=== PATIENT | female | born 1985 | race Two or more races ===

== ENCOUNTER 2022-02-04 10:59 | Emergency (ER) | payer MEDICAID, SELFPAY ==
[2022-02-04 11:26] VITALS: BP 124/76; PULSE 90; O2SAT 97
--- NOTE | 2022-02-04 11:27 | ED_ITS ---
HPI - Skin/Abscess/Foreign Bdy General Chief complaint: Wound/Laceration Stated complaint: Abcess Time Seen by Provider: 02/04/22 11:14 Source: patient and EMS Mode of arrival: EMS Limitations: no limitations History of Present Illness HPI narrative: 36 YO female coming from [facility] where she is there for a section 12 presents to abscess to the posterior head x 2 weeks. No fevers, chills Related Data Previous Rx's Medication Instructions Recorded doxycycline monohydrate 100 mg 100 mg PO BID #14 caps 02/04/22 capsule Allergies Allergy/AdvReac Type Severity Reaction Status Date / Time No Known Allergies Allergy Verified 02/04/22 11:30 Review of Systems Review of Systems: Yes all other systems are reviewed and are negative Constitutional: Constitutional: Reports no additional constitutional complaints, Denies body ache(s), Denies chills, Denies fever(s), Denies headache (s) and Denies weakness Eyes: Eyes: Reports no additional eye complaints and Denies change in vision ENT: Reports system reviewed and no additional complaints, except as documented, Denies dizziness, Denies headache(s), Denies nasal congestion, Denies nasal discharge and Denies neck pain Cardiovascular: Cardiovascular: Reports no additional cardiovascular comp laints, Denies chest pain, Denies leg edema and Denies dyspnea Respiratory: Respiratory: Reports no additional respiratory complaints, Denies cough and Denies dyspnea Gastrointestinal: Gastrointestinal: Reports no additional gastrointestinal complaints, Denies abdominal pain, Denies diarrhea, Denies nausea and Denies vomiting Genitourinary: Genitourinary: Reports no additional female genitourinary complaints and Denies urinary incontinence Musculoskeletal: Musculoskeletal: Reports no additional musculoskeletal complaints, Denies back pain, Denies arthralgias, Denies joint swelling, Denies neck pain, Denies numbness and Denies tingling Integumentary/Breasts: Skin/Breast: Reports system reviewed and no additional complaints, except as docu, Reports furuncle, Reports swelling, Reports erythema and Denies rash Neurologic: Reports system reviewed and no additional complaints, except as documented, Denies Abnormal speech present, Denies dizziness, Denies headache(s), Denies numbness, Denies tingling and Denies weakness [facility] Past Medical History Attestation statement: The following information was validated with the patient. Source: old records reviewed and nursing notes reviewed Social History Social History Alcohol intake: never Patient Tobacco Use Status: Never used Tobacco Use of substances other than those prescribed or required for medical reasons: No Advance Directives: No Advance Directives Information Provided: No Patient : No Physical Exam Vital Signs: Vital Signs: Last Vital Signs Temp 99.0 F 02/04/22 13:59 Pulse 70 02/04/22 16:00 Resp 16 02/04/22 16:00 BP 128/60 02/04/22 16:00 Pulse Ox 98 02/04/22 16:00 O2 Del Method 02/04/22 16:00 BMI result Body Mass Index 21.7 Const: General: cooperative, healthy appearing, comfortable and no acute distress Orientation/consciousness: patient oriented x3 Limitations: no limitations HEENT: Head: Yes normal to inspection Head images: 1. medium sized abscess with tenderness/fluctuance Ears: hearing grossly normal bilaterally General nose exam: Normal external nose present Face and sinus: Yes normal facial exam Mouth: Normal oral and palatal mucosa present Throat: Yes posterior oropharynx normal Eyes: General: appearance normal, both eyes and all related structures Pupils: Equal, round and reactive pupils present Neck: Neck: Yes normal visual inspection, Yes full ROM and Yes no lymphadenopathy Chest: Chest palpation & inspection: normal inspection of the chest Resp: Effort & Inspection: normal respiratory effort Auscultation: clear to auscultation bilaterally Cardio: Rate: regular rate Rhythm: regular rhythm Peripheral pulses: Peripheral pulses 2+ throughout GI: Inspection: Yes normal to inspection Palpation (GI): Soft to palpation and nontender Auscultation: normal bowel sounds Back/Spine/Pelvis: Thoracic/Lumbar Spine: thoracic and lumbar spine normal to inspection Skin: General skin exam: no rashes or lesions noted Neuro: General: patient oriented x3, no focal motor deficits and normal sensation to monofilament Cranial nerves: Yes Equal, round and reactive pupils present Cognition (Neuro): normal cognition Speech: No Abnormal speech present Gait exam (Neuro): Normal gait present Motor exam (neuro): 5/5 motor strength present throughout Extrem: General: Yes normal to inspection MDM - Skin/Abscess/Foreign Bdy MDM Narrative Medical decision making narrative: 36-year-old female coming from an inpatient psych unit with an abscess the back of her head for 2 weeks with no reports of fevers or chills. See procedure note for I&D. Differential Diagnosis Differential diagnosis: Likely abscess of skin or subcutaneous tissue Medical Records Attestation: I reviewed the patient's medical records. Lab Data Attestation: I reviewed the patient's lab results. Procedures Abscess I/D Site: scalp Local Anesthetic: lidocaine 1% Amount of anesthesia used (mL): 1 Technique: incised with blade Amount of fluid expressed (mL): 10 Sent for culture/gram staining?: No Irrigation: No Packing used?: iodoform Discharge Plan Discharge Clinical Impression: Abscess Patient Disposition: Xfer [email or web address] Instructions: Abscess (ED) Additional Instructions: Packing removal in 48 hours Start antibiotic today Change dressing daily Prescriptions: New doxycycline monohydrate 100 mg capsule 100 mg PO BID Qty: 14 0RF
[2022-02-04 11:28] VITALS: BP 105/60; PULSE 100; RESP 16; TEMP 36.8; O2SAT 98; BMI 21.7
[2022-02-04] MEDS: Lidocaine 4 % Cream KIT 1 APPL TOPICAL (12:13)
[2022-02-04] MEDS: Lidocaine HCl 1 % MPF 2 ML VIAL INFILTRATI ×2 (12:14)
[2022-02-04] MEDS: Acetaminophen 325 MG TABLET 975 MG PO (12:47)
--- NOTE | 2022-02-04 13:11 | PC.NURSE ---
Provider approached to send pt back to [facility] section 12. Ashley from [employer] was contacted and stated they are holding 2 transfers unsure of eta, and we can book with another company if need be. [facility] was called at 1253 pm they said they cannot transport the pt. So [facility] was contacted at 1254 they stated they can take the pt for 330pm .
[2022-02-04 13:59] VITALS: BP 128/64; PULSE 87; RESP 16; TEMP 37.2; O2SAT 98
--- NOTE | 2022-02-04 15:43 | PC.NURSE ---
call was placed to [employer] to find out eta due to [facility] saying they would be picking up the pt at 1530. [employer] stated they are behind but will be send the truck in 30 mins
[2022-02-04 16:00] VITALS: BP 128/60; PULSE 70; RESP 16; O2SAT 98
== END 2022-02-04 17:10 | disposition other institution (70) ==
PROVIDERS: Emergency Provider Emergency Medicine; PCP Internal Medicine
DX: L02.811 Cutaneous abscess of head [any part, except face] (principal)
CPT/HCPCS: 10060; 99283; 99284

== ENCOUNTER 2024-02-06 14:31 | Emergency (ER) | payer MEDICAID, SELFPAY ==
--- NOTE | ~2024-02-06 | CT_ITS ---
EXAMINATION: CT HEAD WITHOUT CONTRAST CLINICAL INFORMATION: Headache. Nausea. Vomiting. COMPARISON: None available. TECHNIQUE: Contiguous axial imaging was performed from the skull base to vertex without intravenous administration of contrast. This CT examination was performed using dose optimization techniques as appropriate, variously including the following: *Automated exposure control. *Adjustment of mA and/or kV according to patient size (this includes techniques or standardized protocols for targeted exams where dose is matched to indication/reason for exam; i.e. extremities or head). *Use of iterative reconstruction technique. DLP: 525 mGy-cm FINDINGS: There is no evidence of acute intracranial hemorrhage or edematous territorial infarction. Aguiar-white matter differentiation is preserved. There is no abnormal attenuation within the brain parenchyma. The ventricles are normal in morphology and size. No evidence for obstructive hydrocephalus. No abnormal mass effect or midline shift. No extra-axial fluid collections. Soft tissue edema/hematoma along the left posterior vertex. No associated acute osseous abnormalities. Near complete opacification of the partially atelectatic left maxillary sinus. Mild mucosal thickening of the remaining paranasal sinuses. The mastoid air cells and middle ear cavities are clear. CT/CT head/brain wo IV con IMPRESSION: 1. No evidence of acute intracranial hemorrhage or edematous territorial infarction. 2. Soft tissue edema/hematoma along the left posterior vertex. No associated osseous abnormalities. 3. Prominent left maxillary sinus disease with partial atelectasis. Electronically signed by: Abrahan Padilla DO 02/07/2024 12:50 AM EDT
--- NOTE | ~2024-02-06 | XR_ITS ---
EXAMINATION: XR CHEST CLINICAL INFORMATION: Cough. Shortness of breath. COMPARISON: None available. TECHNIQUE: 2 views of the chest were obtained. FINDINGS: No significant abnormality is noted involving the heart, lungs, mediastinum, bony thorax or soft tissues. XR/XR chest 2V IMPRESSION: Unremarkable examination. Electronically signed by: Dennis Nuñez MD 02/07/2024 01:26 AM EDT RP
[2024-02-06 15:22] VITALS: BP 130/74; PULSE 116; RESP 18; TEMP 37.1; O2SAT 97; BMI 19.7
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
[2024-02-06 16:01] LABS: MANUAL DIFF FLAG NO
[2024-02-06 16:05] LABS: Appearance Urine Clear; Glucose Urine UA Negative (Negative); Leukocyte Esterase Urine Negative (Negative); Nitrite Urine Negative (Negative); Specific Gravity - Urine 1.025 (1.005-1.025); UMIC TRIGGER UACC YES; Urine Blood Negative (Negative); Urine Ketones >=160 mg/dL (Negative); Urine Protein 30 (1+) mg/dL (Neg-Trace)
[2024-02-06 16:12] LABS: Basophils Percent Auto 0.3 % (0-2); Color Urine Yellow; Eosinophils Percent Auto 0.2 % (0-4); Hematocrit 38.1 % (37.0-47.0); Hemoglobin 12.6 g/dl (12.0-16.0); Imm Gran Abs Auto 0.06 X10*3/uL (0.00-0.03); Imm Gran Pct Auto 0.5 % (0.0-0.4); Lymphocytes Absolute Auto 3.5 X10*3/uL (1.2-4.9); Lymphocytes Percent Auto 26.8 % (20-40); Mean Corpuscular HGB Conc 33.1 g/dl (31.0-35.0); Mean Corpuscular Hemoglobin 27.7 pg (27.0-33.0); Mean Corpuscular Volume 83.7 fL (80.0-98.0); Mean Platelet Volume 8.4 fL (9.4-12.3); Monocytes Absolute Auto 0.6 X10*3/uL (0.1-1.2); Monocytes Percent Auto 4.4 % (2-11); Neutrophils Absolute Auto 8.9 x10*3/uL (2.0-8.3); Neutrophils Percent Auto 67.8 % (45-73); Platelet Count 401 X10*3/uL (160-400); Red Blood Count 4.55 X10*6/uL (4.20-5.50); Red Cell Distribution Width 14.6 % (11.0-16.0); White Blood Count 13.2 X10*3/uL (4.8-10.8)
[2024-02-06 16:14] LABS: Amphetamine Screen Urine Not Detected (Not Detect); Barbiturates, Urine Not Detected (Not Detect); Benzodiazepines Screen Urine Not Detected (Not Detect); Buprenorphine Scr Not Detected (Not Detect); Cannabinoid Screen Urine POSITIVE (Not Detect); Cocaine Screen Urine POSITIVE (Not Detect); Fentanyl, urine POSITIVE (Not Detect); Methadone Screen, Urine Not Detected (Not Detect); Opiate Screen Urine POSITIVE (Not Detect); Oxycodone Screen Urine Not Detected (Not Detect); Phencyclidine Screen Urine Not Detected (Not Detect)
[2024-02-06 16:19] LABS: Lactic Acid 1.1 mmol/L (0.5-2.0)
[2024-02-06 16:20] LABS: Bacteria Urine None Seen (None Seen); RBC Urine 0-2 /HPF (0-2); WBC Urine 0-5 /HPF (0-5)
[2024-02-06 16:21] LABS: Ethanol < 10 mg/dL
[2024-02-06 16:30] LABS: HCG Quantitative 14579 mIU/mL
[2024-02-06 17:52] LABS: Alanine Aminotransferase 42 U/L (0-31); Albumin Level 3.9 g/dL (3.5-5.0); Alkaline Phosphatase 90 U/L (39-117); Anion Gap 14 (12-20); Aspartate Amino Transferase 33 U/L (5-31); Bilirubin Total 0.2 mg/dL (0.0-1.0); Blood Urea Nitrogen 6 mg/dL (9-16); Calcium 9.8 mg/dL (8.4-10.2); Carbon Dioxide 24 mmol/L (22-29); Chloride 99 mmol/L (96-108); Creatinine Clr Calc Pharmacy 93.8; Estimated Glomerular Filt Rate > 60; Glucose Random 142 mg/dL (60-115); Magnesium 1.7 mg/dL (1.6-2.6); Potassium 3.7 mmol/L (3.3-5.1); Sodium 133 mmol/L (135-145); Total Protein 7.7 g/dL (6.5-8.0)
[2024-02-06 20:07] VITALS: BP 110/67; PULSE 100; RESP 16; TEMP 36.7; O2SAT 97
[2024-02-06 23:07] VITALS: BP 132/70; PULSE 91; RESP 16; TEMP 36.6; O2SAT 96
[2024-02-07] MEDS: cephALEXin 500 MG CAPSULE PO (00:35)
[2024-02-07] MEDS: Ondansetron ODT 4 MG TAB.RAPDIS TRANSLINGU (00:35)
[2024-02-07] MEDS: Penicillin G Benzathine 2,400,000 UNIT/4 ML SYRINGE 2400000 UNIT IM (00:35)
--- NOTE | 2024-02-07 00:48 | PC.NURSE ---
this rn assumed care of pt. pt a&ox4, respirations even and unlabored. vss. medicated pt according to mar, pt tolerated well with water.
[2024-02-07 01:27] VITALS: BP 108/51; PULSE 71; RESP 16; TEMP 36.9; O2SAT 94
[2024-02-07 03:13] VITALS: BP 114/59; PULSE 72; RESP 16; TEMP 36.6; O2SAT 97
[2024-02-07 03:14] VITALS: BP 114/59; PULSE 72; RESP 16; TEMP 36.6; O2SAT 97
[2024-02-07 08:20] LABS: HIV AB/AG Nonreactive (Nonreactive); HIV Num 1 0.18 S/CO (0.00-0.99)
== END 2024-02-07 03:21 | disposition home or self-care (01) ==
PROVIDERS: Physician Assistant Medical; Emergency Provider Emergency Medicine Emergency Medical Services; PCP Family Medicine
DX: S06.0X1A Concussion with loss of consciousness of 30 minutes or less, initial encounter (principal); S00.01XA Abrasion of scalp, initial encounter; A53.9 Syphilis, unspecified; R11.10 Vomiting, unspecified; R06.02 Shortness of breath; R05.9 Cough, unspecified; R51.9 Headache, unspecified; X58.XXXA Exposure to other specified factors, initial encounter; Y93.89 Activity, other specified; Y92.89 Other specified places as the place of occurrence of the external cause; Y99.8 Other external cause status; Z51.81 Encounter for therapeutic drug level monitoring; Z20.2 Contact with and (suspected) exposure to infections with a predominantly sexual mode of transmission; Z79.899 Other long term (current) drug therapy
CPT/HCPCS: 36415; 70450; 71046; 80053; 80307; 81001; 83605; 83735; 84702; 85025; 87040; 87389; 96372; 99284; J0561

== ENCOUNTER 2024-12-27 07:17 | Emergency (ER) | payer MEDICAID, SELFPAY ==
[2024-12-27] VITALS (14 sets, daily range): BP systolic 89–122; BP diastolic 44–80; PULSE 63–138; RESP 12–25; TEMP 36.2–36.9; O2SAT 94–100; BMI 17.7
[2024-12-27] MEDS: diazePAM 10 MG/2 ML CARTRIDGE 2.5 MG IM (07:34)
--- NOTE | 2024-12-27 07:50 | ED_ITS ---
HPI - Overdose General Chief Complaint: Overdose Stated Complaint: OD,8MG NARCAN Time Seen by Provider: 12/27/24 07:25 Source: EMS Mode of arrival: EMS Limitations: language barrier and altered mental status History of Present Illness ED Provider: HPI Narrative: 39-year-old woman found with multiple drug paraphernalia on her person including injection needles, crack pipe, presenting with being found unresponsive on the sidewalk, giving a total of 8 mg of intranasal Narcan, presented to the emergency department, writhing on the stretcher and agitated, not really able to answer direct questions requesting water, trying to get off the stretcher. Related Data Home Medications ?Medication ?Instructions ?Recorded ?Confirmed No Known Home Meds 12/27/24 12/27/24 Allergies Allergy/AdvReac Type Severity Reaction Status Date / Time No Known Allergies Allergy Verified 12/27/24 07:30 Review of Systems 2 Constitutional: Constitutional: Reports as per [facility] Social History Social History Alcohol intake: current Alcohol intake frequency: holidays/special occasions only Patient Tobacco Use Status: Never used Tobacco Smoked in Last 30 Days: Yes Use of substances other than those prescribed or required for medical reasons: Yes Substance Use Type: Heroin Advance Directives: No Advance Directives Information Provided: Yes Patient : No Physical Exam 2 Vital Signs: Vital Signs: Last Vital Signs Temp 98.6 F 12/28/24 06:51 Pulse 67 12/28/24 06:51 Resp 16 12/28/24 06:51 BP 133/88 12/28/24 06:51 Pulse Ox 100 12/28/24 06:51 O2 Del Method Room Air 12/28/24 06:51 O2 Flow Rate 14 12/27/24 10:52 BMI result Body Mass Index 17.7 Const: Other: * Gen: ?Appears older than stated age * HEENT: No facial trauma, no blood in the airway, pupils 3 mm reactive bilaterally * Neck: No infectious etiology noted or trauma over the neck * CV: S1-S2 with palpable pulses bilaterally * Resp: Moving air well * Abd: Cachectic abdomen nontender nondistended * MSK: FROM, strength 5/5 all extremities * Skin: No obvious evidence of any bruising or cellulitis * Neuro: ?Alert, agitated moving upper or lower extremities symmetrically, requesting water, able to follow the recommends but not answering questions Course Course Course Narrative: BS stable, awake and alert VS stable refuses all psych/substance abuse help, declined SUDE sent home with narcan will allow her to sleep tonight and DC in AM observation will end at 6am on 12/27/24 JOSSUE Reevaluation(s) Reevaluation #1: Anticipating discharge as per plan above Time: 07:39 Medications Administered Generic Name Dose Route Start Last Admin Trade Name Freq PRN Reason Stop Dose Admin Lactated Ringer's 1,000 mls @ 0 mls/hr 12/27/24 12:30 12/27/24 15:00 Lr IV Infused .Q0M ROSENDA Infusion Wide Open Discontinued Medications Generic Name Dose Route Start Last Admin Trade Name Freq PRN Reason Stop Dose Admin Dextrose 25 gm 12/27/24 10:38 12/27/24 10:37 Dextrose 50 % 25 Gm/50 Ml Syringe IVPUSH 12/27/24 10:39 25 gm ONCE ONE Administration Dextrose 25 gm 12/27/24 10:53 12/27/24 10:54 Dextrose 50 % 25 Gm/50 Ml Syringe IVPUSH 12/27/24 10:54 25 gm ONCE ONE Administration Diazepam 2.5 mg 12/27/24 07:26 12/27/24 07:34 Diazepam 10 Mg/2 Ml Cartridge IM 12/27/24 07:27 2.5 mg STAT STA Administration Diazepam 5 mg 12/27/24 07:52 12/27/24 09:23 Diazepam 10 Mg/2 Ml Cartridge IM 12/27/24 07:53 Not Given STAT STA Haloperidol Lactate 5 mg 12/27/24 07:26 12/27/24 07:38 Haloperidol Lactate 5 Mg/Ml Vial IM 12/27/24 07:27 5 mg ONCE ONE Administration Sodium Chloride 1,000 mls @ 999 mls/hr 12/27/24 10:15 12/27/24 11:22 Ns IV 12/27/24 11:15 Infused .Q1H1M ROSENDA Infusion Sodium Chloride 1,000 mls @ 999 mls/hr 12/27/24 11:30 12/27/24 14:02 Ns IV 12/27/24 12:30 Infused .Q1H1M ROSENDA Infusion Naloxone HCl 8 mg 12/27/24 08:00 12/27/24 19:49 Naloxone Hcl Nasal Take Home 4 Mg [place] NOSTRILALT 12/27/24 08:01 Not Given ONCE ONE Medical Decision Making Medical Decision Making MDM Narrative: 39-year-old woman found with multiple drug paraphernalia, received 8 mg of Narcan, at this point requiring sedation for her safety she is trying to get up out of bed and at this point I would like to sedate her just enough so she can be re-evaluated by recovery team, if to be discharged we will order Narcan to go, EMS did not report it SI or HI in the field, 10:30 patient is more comfortable but she was becoming hypotensive and so we are getting blood work and providing IV fluids 10:48 patient is hypoglycemic so providing dextrose as well 15:10 patient is going to be discharge, not interested in detox, blood pressure has normalized she did receive 3 use of fluids, which consistent with drug use and dehydration, there was no underlying evidence for any infection or consistent hypoglycemia she ate, her vital signs have improved quite a bit with fluids and food. 16:00 patient at the time of discharge stated that now she would like to speak to recovery team I will ask them to see the patient again. Differential Diagnosis Differential Diagnoses: The differential diagnosis associated with the presentation includes (Trauma, seizure, overdose, alcohol withdrawal, opiate withdrawal, hepatic encephalopathy) Admission/Observation Consideration of admission/observation: Escalation of care including admission/observation considered 2022 Emergency Medicine Coding Guide from [employer] on 12/27/2024 All calculations should be rechecked by clinician prior to use 2022 Emergency Medicine Coding Guide from [employer] on 12/27/2024 All calculations should be rechecked by clinician prior to use RESULT SUMMARY: 5 Estimated Level of Service Problems: High (5) Risk: High (5) Data: Extensive (5) NARRATIVE MDM: This patient's problem complexity is High as patient: may have an acute or chronic illness/injury posing a threat to life or body function. This patient's risk is High due to: overall presentation requiring evaluation for a potentially High-risk process. This patient's data complexity is Extensive due to: -multiple tests ordered -independent historian used to support history -independent interpretation of imaging or EKG -discussion of management/testing with external professional INPUTS: Number and Complexity ?> 2 = 5: illness/injury w/life or body threat (b) Risk level ?> 4 = High Tests ordered ?> 2 = 2 Tests results reviewed (excluding labs) ?> 0 = 0 Prior external notes reviewed ?> 0 = 0 Assessment requiring and independent historian ?> 1 = Yes Independent interpretation of tests ?> 1 = Yes Discussed management/test interpretation w/external professional ?> 1 = Yes Lab Data 12/27/24 10:21 12/27/24 10:21 Labs: Lab Results 12/27/24 12/27/24 12/27/24 Range/Units 10:21 10:34 11:30 WBC 11.0 H (4.8-10.8) X10*3/uL RBC 3.78 L (4.20-5.50) X10*6/uL Hgb 10.9 L (12.0-16.0) g/dl Hct 34.6 L (37.0-47.0) % MCV 91.5 (80.0-98.0) fL MCH 28.8 (27.0-33.0) pg MCHC 31.5 (31.0-35.0) g/dl RDW 13.7 (11.0-16.0) % Plt Count 226 D (160-400) X10*3/uL MPV 9.0 L (9.4-12.3) fL Immature Gran % (Auto) 0.4 (0.0-0.4) % Neut % (Auto) 82.3 H (45-73) % Lymph % (Auto) 10.5 L (20-40) % Independence % (Auto) 6.6 (2-11) % Eos % (Auto) 0.0 (0-4) % Baso % (Auto) 0.2 (0-2) % Lymph # (Auto) 1.2 (1.2-4.9) X10*3/uL Independence # (Auto) 0.7 (0.1-1.2) X10*3/uL Eos # (Auto) 0.0 (0.0-0.4) X10*3/uL Baso # (Auto) 0.0 (0.0-0.2) X10*3/uL Abs Immat Gran (auto) 0.04 H (0.00-0.03) X10*3/uL Absolute Neuts (auto) 9.0 H (2.0-8.3) x10*3/uL Absolute Nucleated RBC 0.000 (0.0-0.012) X10*3/uL Nucleated RBC % (auto) 0.0 (0.0-0.2) /100WBC Sodium 140 (135-145) mmol/L Potassium 3.6 (3.3-5.1) mmol/L Chloride 106 (96-108) mmol/L Carbon Dioxide 28 (22-29) mmol/L Anion Gap 10 L (12-20) BUN 13 (9-16) mg/dL Creatinine 0.53 (0.5-1.4) mg/dL Estim Creat Clear Calc 103.9 Estimated GFR > 60 POC Glucose 40 L* 131 H (60-115) mg/dL Random Glucose 46 L* (60-115) mg/dL Calcium 8.4 D (8.4-10.2) mg/dL Total Bilirubin 0.1 (0.0-1.0) mg/dL AST 78 H (5-31) U/L ALT 53 H (0-31) U/L Alkaline Phosphatase 94 (39-117) U/L Total Protein 6.4 L (6.5-8.0) g/dL Albumin 3.6 (3.5-5.0) g/dL Urine Opiates Screen (Not Detect) Ur Buprenorphine Scrn (Not Detect) ng/mL Ur Oxycodone Screen (Not Detect) ng/mL Urine Methadone Screen (Not Detect) ng/mL Urine Fentanyl Screen (Not Detect) Ur Barbiturates Screen (Not Detect) Ur Phencyclidine Scrn (Not Detect) Ur Amphetamines Screen (Not Detect) U Benzodiazepines Scrn (Not Detect) Urine Cocaine Screen (Not Detect) U Marijuana (THC) Screen (Not Detect) 12/27/24 12/27/24 12/27/24 Range/Units 12:21 13:49 14:07 WBC (4.8-10.8) X10*3/uL RBC (4.20-5.50) X10*6/uL Hgb (12.0-16.0) g/dl Hct (37.0-47.0) % MCV (80.0-98.0) fL MCH (27.0-33.0) pg MCHC (31.0-35.0) g/dl RDW (11.0-16.0) % Plt Count (160-400) X10*3/uL MPV (9.4-12.3) fL Immature Gran % (Auto) (0.0-0.4) % Neut % (Auto) (45-73) % Lymph % (Auto) (20-40) % Independence % (Auto) (2-11) % Eos % (Auto) (0-4) % Baso % (Auto) (0-2) % Lymph # (Auto) (1.2-4.9) X10*3/uL Independence # (Auto) (0.1-1.2) X10*3/uL Eos # (Auto) (0.0-0.4) X10*3/uL Baso # (Auto) (0.0-0.2) X10*3/uL Abs Immat Gran (auto) (0.00-0.03) X10*3/uL Absolute Neuts (auto) (2.0-8.3) x10*3/uL Absolute Nucleated RBC (0.0-0.012) X10*3/uL Nucleated RBC % (auto) (0.0-0.2) /100WBC Sodium (135-145) mmol/L Potassium (3.3-5.1) mmol/L Chloride (96-108) mmol/L Carbon Dioxide (22-29) mmol/L Anion Gap (12-20) BUN (9-16) mg/dL Creatinine (0.5-1.4) mg/dL Estim Creat Clear Calc Estimated GFR POC Glucose 93 65 81 (60-115) mg/dL Random Glucose (60-115) mg/dL Calcium (8.4-10.2) mg/dL Total Bilirubin (0.0-1.0) mg/dL AST (5-31) U/L ALT (0-31) U/L Alkaline Phosphatase (39-117) U/L Total Protein (6.5-8.0) g/dL Albumin (3.5-5.0) g/dL Urine Opiates Screen (Not Detect) Ur Buprenorphine Scrn (Not Detect) ng/mL Ur Oxycodone Screen (Not Detect) ng/mL Urine Methadone Screen (Not Detect) ng/mL Urine Fentanyl Screen (Not Detect) Ur Barbiturates Screen (Not Detect) Ur Phencyclidine Scrn (Not Detect) Ur Amphetamines Screen (Not Detect) U Benzodiazepines Scrn (Not Detect) Urine Cocaine Screen (Not Detect) U Marijuana (THC) Screen (Not Detect) 12/27/24 12/27/24 Range/Units 19:41 20:22 WBC (4.8-10.8) X10*3/uL RBC (4.20-5.50) X10*6/uL Hgb (12.0-16.0) g/dl Hct (37.0-47.0) % MCV (80.0-98.0) fL MCH (27.0-33.0) pg MCHC (31.0-35.0) g/dl RDW (11.0-16.0) % Plt Count (160-400) X10*3/uL MPV (9.4-12.3) fL Immature Gran % (Auto) (0.0-0.4) % Neut % (Auto) (45-73) % Lymph % (Auto) (20-40) % Independence % (Auto) (2-11) % Eos % (Auto) (0-4) % Baso % (Auto) (0-2) % Lymph # (Auto) (1.2-4.9) X10*3/uL Independence # (Auto) (0.1-1.2) X10*3/uL Eos # (Auto) (0.0-0.4) X10*3/uL Baso # (Auto) (0.0-0.2) X10*3/uL Abs Immat Gran (auto) (0.00-0.03) X10*3/uL Absolute Neuts (auto) (2.0-8.3) x10*3/uL Absolute Nucleated RBC (0.0-0.012) X10*3/uL Nucleated RBC % (auto) (0.0-0.2) /100WBC Sodium (135-145) mmol/L Potassium (3.3-5.1) mmol/L Chloride (96-108) mmol/L Carbon Dioxide (22-29) mmol/L Anion Gap (12-20) BUN (9-16) mg/dL Creatinine (0.5-1.4) mg/dL Estim Creat Clear Calc Estimated GFR POC Glucose 95 (60-115) mg/dL Random Glucose (60-115) mg/dL Calcium (8.4-10.2) mg/dL Total Bilirubin (0.0-1.0) mg/dL AST (5-31) U/L ALT (0-31) U/L Alkaline Phosphatase (39-117) U/L Total Protein (6.5-8.0) g/dL Albumin (3.5-5.0) g/dL Urine Opiates Screen POSITIVE H (Not Detect) Ur Buprenorphine Scrn Not Detected (Not Detect) ng/mL Ur Oxycodone Screen Not Detected (Not Detect) ng/mL Urine Methadone Screen Not Detected (Not Detect) ng/mL Urine Fentanyl Screen POSITIVE H (Not Detect) Ur Barbiturates Screen Not Detected (Not Detect) Ur Phencyclidine Scrn Not Detected (Not Detect) Ur Amphetamines Screen Not Detected (Not Detect) U Benzodiazepines Scrn Not Detected (Not Detect) Urine Cocaine Screen POSITIVE H (Not Detect) U Marijuana (THC) Screen POSITIVE H (Not Detect) Independent Interpretation I performed an independent interpretation of an: EKG (117 bpmsinus tachycardia without any QTC prolongation or dysrhythmia) Social Determinants Patient?s care significantly limited by Social Determinants of Health including: Inadequate housing and Other Social Determinant of Health (Opiate use disorder) Critical Care Time Critical Care Time Total Critical Care Time: 45 Attestation: Time is exclusive of separately billable procedures. Time includes: direct patient care, patient reassessment, coordination of patient care, interpretation of data (laboratory data, pulse oximetry, arterial blood gases and chest xrays), review of patient's medical records, medical consultation and documentation of patient care. Procedures excluded from critical care time: central intravenous line placement and electrocardiography. Discharge Plan Discharge Clinical Impression: Drug overdose, Hypoglycemia, Acute dehydration Patient Disposition: Home, Self-Care Instructions: Dehydration (ED), Dehydration (DC), Non-diabetic Hypoglycemia (ED) Additional Instructions: Opiate use disorder You were seen in our Emergency Department today for treatment of opiate use disorder. You may have been dosed with medication for opiate use disorder (MOUD) in the form of suboxone or methadone. You may experience feeling some withdrawal symptoms and this is normal. The? dose in the Emergency Department is a starting dose and meant to be titrated up once you follow up with a clinic. Please do not feel discouraged, it is a process. The nurse has reviewed with you where to follow up and what information to bring with you, to continue treatment. You also may have been given naloxone (narcan) to take home with you. This medication is used to potentially treat opiate overdose. If you decide you want to stop or cut down on how much you?re using, you can call or walk into our outpatient Addiction Treatment office: [facility] (M-F 9am-5p) [address], [address] [phone] You may have been provided with safer injection?items, please take time to take care of YOU and your health. Use new supplies whenever possible to lessen the chances of infections and other illnesses.? ?If you need more supplies, please go [facility],? [address] [place] [address] OR you can call or text to coordinate delivery of safer supplies. You were also provided a list of several treatment providers in the area.? If you experience any worsening symptoms you cannot control please return to the ED or call 911. Please follow up at your next appointment. Things to look out for are fevers, chest pain, shortness of breath, severe pain, dizziness, fainting or any other concerns. Prescriptions: No Action No Known Home Meds Print Language: Kittitian
--- NOTE | 2024-12-27 08:01 | ECG_ITS ---
Test Reason : overdose Blood Pressure : */* mmHG Vent. Rate : 117 BPM Atrial Rate : 117 BPM P-R Int : 134 ms QRS Dur : 74 ms QT Int : 336 ms P-R-T Axes : 72 77 59 degrees QTcB Int : 468 ms Sinus tachycardia Possible Left atrial enlargement Minimal voltage criteria for LVH, may be normal variant ( Sokolow-Salazar ) Borderline ECG No previous ECGs available Referred By: Griffin William Electronically Signed By: Emerson Funes
--- NOTE | 2024-12-27 08:03 | PC.NURSE ---
Pt finally calming. arousable to light touch. ST onmonitor. no resp depression. skin pwd.
--- NOTE | 2024-12-27 10:08 | PC.NURSE ---
MD aware of low BP. VO for I fluids. pt is arousable to light touch. slightl diaphoretic. positioned slight [place]. Will continue to monitor closely.
[2024-12-27 10:27] LABS: MANUAL DIFF FLAG NO
[2024-12-27 10:31] LABS: Hematocrit 34.6 % (37.0-47.0); Hemoglobin 10.9 g/dl (12.0-16.0); Imm Gran Abs Auto 0.04 X10*3/uL (0.00-0.03); Imm Gran Pct Auto 0.4 % (0.0-0.4); Lymphocytes Absolute Auto 1.2 X10*3/uL (1.2-4.9); Mean Corpuscular HGB Conc 31.5 g/dl (31.0-35.0); Mean Corpuscular Hemoglobin 28.8 pg (27.0-33.0); Mean Corpuscular Volume 91.5 fL (80.0-98.0); NRBC Abs Auto 0.000 X10*3/uL (0.0-0.012); NRBC Pct Auto 0.0 /100WBC (0.0-0.2); Platelet Count 226 X10*3/uL (160-400); Red Blood Count 3.78 X10*6/uL (4.20-5.50); White Blood Count 11.0 X10*3/uL (4.8-10.8)
--- NOTE | 2024-12-27 10:37 | PC.NURSE ---
D50 1 amp given IVP after POC 40 known.
[2024-12-27 10:40] LABS: Glucose, Whole Blood 40 mg/dL (60-115)
--- NOTE | 2024-12-27 10:43 | PC.NURSE ---
Pt is still arousable to light touch. MD aware of low POC.
[2024-12-27 10:47] LABS: Alanine Aminotransferase 53 U/L (0-31); Albumin Level 3.6 g/dL (3.5-5.0); Alkaline Phosphatase 94 U/L (39-117); Anion Gap 10 (12-20); Aspartate Amino Transferase 78 U/L (5-31); Blood Urea Nitrogen 13 mg/dL (9-16); Calcium 8.4 mg/dL (8.4-10.2); Carbon Dioxide 28 mmol/L (22-29); Chloride 106 mmol/L (96-108); Creatinine Clr Calc Pharmacy 103.9; Estimated Glomerular Filt Rate > 60; Potassium 3.6 mmol/L (3.3-5.1); Sodium 140 mmol/L (135-145); Total Protein 6.4 g/dL (6.5-8.0)
--- NOTE | 2024-12-27 10:56 | PC.NURSE ---
Pt does not have or need a sitter. Is not more awake. Denies SI/HI. requesting soda. nods off quickly w/o stimulation
--- NOTE | 2024-12-27 11:44 | MHC.CARE ---
CARE team attempted to meet with the pt to complete a SUDE/recovery assessment. ER nurse reported that her vitals and blood pressure have been low and that she has been in and out due to medications that were administered on arrival to the ER. Pt was observed sitting up but unable to hold her head up or keep her eyes open. Will try again later.
--- OUTSIDE RECORDS SUMMARY | 2024-12-27 12:11 | XMS_ITS | Clinical Summary ---
Author Organization [facility] Address [address] [place] [address] Phone Care Team Providers Care Underground Production Foreperson Name Role Phone Pcp, Unknown Primary Care Provider Unavailabl e Allergies No known active allergies Medications ARIPiprazole (ABILIFY) 10 MG tablet Take 10 mg by mouth. 01/24/2024 Active Active Problems Problem Noted Date Diagnosed Date Hepatitis C 09/04/2024 Pancreatitis 09/03/2024 Electrolyte abnormality 09/02/2024 Assessment & Plan (09/03/2024 9:27 AM EDT): Phosphorus low again, replete and follow also supplement magnesium Assessment & Plan (09/02/2024 9:07 AM EDT): Phosphorus low, replete IV, magnesium also low. Replete and monitor Alcohol-induced acute pancre atitis without infection or necrosis 09/01/2024 Assessment & Plan (09/03/2024 9:27 AM EDT): Patient drinks heavily, up to 1.5L of hard liquor daily. Presented with abdominal pain, lipase elevated, CT abdomen/pelvis with evidence of peripancreatic stranding. Lipase decreased overnight. Patient insisted on eating yesterday and likely exacerbated her symptoms. Did have some nausea and pain overnight. Ultrasound yesterday showed common duct of 8 mm Mild transaminitis, will initiate infectious hepatitis serologies Advance diet as able Assessment & Plan (09/02/2024 9:07 AM EDT): Patient drinks heavily, up to 1.5L of hard liquor daily. Presented with abdominal pain, lipase elevated, CT abdomen/pelvis with evidence of peripancreatic stranding. Advance diet as tolerated once pain improves and nausea resolves IV fluids, aggressive hydration with LR Pain control Monitor lipase, LFTs, triglycerides, LFTs remain stable, lipase was [address] abdomen and pelvis if clinical status worsens Will check liver ultrasound today Incentive spirometry Will advance to clears as pain has improved Assessment & Plan (09/01/2024 6:07 PM EDT): Patient drinks heavily, up to 1.5L of hard liquor daily. Presented with abdominal pain, lipase elevated, CT abdomen/pelvis with evidence of peripancreatic stranding. NPO with sips of water as tolerated, generally encourage bowel rest Advance diet as tolerated once pain improves and nausea resolves IV fluids, aggressive hydration with LR Pain control with IV opioids hydromorphone PRN, antiemetics with ondansetron PRN Monitor lipase, LFTs, triglycerides Repeat CT abdomen and pelvis if clinical status worsens No immediate indication for GI consult at this time Incentive spirometry Alcohol abuse, daily use 09/01/2024 Assessment & Plan (09/03/2024 9:27 AM EDT): No severe signs or symptoms of withdrawal continue CIWA scale multivitamin thiamine folate as well as lorazepam as needed Assessment & Plan (09/02/2024 9:07 AM EDT): Monitor for signs of withdrawal, plan on phenobarbital loading dose if starts having signs of significant withdrawal. Social work consult Patient is normotensive right now no tachycardia or tremors, denies hallucinations Assessment & Plan (09/01/2024 6:07 PM EDT): Monitor for signs of withdrawal, plan on phenobarbital loading dose if starts having signs of significant withdrawal. Threatened , antepartum 03/29/2024 Assessment & Plan (03/29/2024 6:00 PM EST): Dorothy was scheduled for an OB Intake today but reports that about 2 weeks ago she began having heavy bleeding and passed clots and tissues. Bleeding just stopped. She feels sure it was a miscarriage. She had an Ultrasound at a hospital in [place] for Dual Diagnosis which showed she was about 8 weeks along. She is sad but doing ok. Declines additional supports. States that bleeding began after taking an antibiotic for a cut on her finger. O: Visit by phone A: Likely Spontaneous P: Recommend US to confirm SAB CLAUDIA with visit with provider to follow. Reviewed to call with bleeding> pad/hr, severe pain, fever -she agrees Reviewed SAB are often related to non repeating chromosomal abnormalities, reviewed likely not something she did or did not do. Offered Empty Arms Support- she declines for now Discussed Family Planning - she does not like to use contraception and is open to conception if it happens Unsheltered homelessness 03/12/2024 Suicidal ideation 02/07/2024 Bipolar disorder, current episode mixed, moderat e 12/18/2023 Assessment & Plan (09/03/2024 9:27 AM EDT): Prior history of taking Abilify, does not appear to be a current medication, social work consulted Assessment & Plan (09/02/2024 9:07 AM EDT): Prior history of taking Abilify, does not appear to be a current medication, social work consulted Assessment & Plan (09/01/2024 6:10 PM EDT): Unclear if she takes any medications at this time, was on abilify in the past, will explore when she is able to discuss further. May need a psychiatry consult to guide therapy. Impulse control disorder 12/18/2023 Social History Tobacco Use Types Packs/Day Years Used Date Smoking Tobacco: Never Smokeless Tobacco: Never Tobacco Cessation:Counseling Given: Not Answered Alcohol Use Standard Drinks/Week Comments Yes 0 (1 standard drink = 0.6 oz pur e alcohol) Education Answer Date Recorded Are you interested in more education? Not on luis armando e 08/13/2023 Are you concerned about learning? Not on file 08/13/2023 No 08/13/2023 No 08/13/2023 Food Answer Date Recorded Within the past 6 months we worried whether our food would run out before we got money to buy more. Never True 09/01/2024 Within the past 6 months the food we bought just didn't last and we didn't have enough money to get more. Never True Residential Stability Answer Date Recor ded What is your housing situation today? I have ritika sandoval 09/01/2024 How many times have you move d in the past 12 months? Zero (I did not move) 09/01/2024 Paying for Meds Answer Date Recorded Do you have trouble paying for medicines? No 09/01/2024 Paying Utility Bills Answer Date Record ed Do you have trouble paying your heating or elect ricity bill? No 09/01/2024 Transportation Answer Date Recorded Has the lack of transportati on kept you from medical appointments or from getting medications? No 09/01/2024 Digital Access Answer Date Recorded No 09/01/2024 Yes 09/01/2024 Do you have reliable internet access at home? Ye s 09/01/2024 Do you have a device (e.g., phone, tablet, computer) with a working camera? Yes 09/01/2024 Intimate Partner Violence Answer Date R ecorded Are you denied basic needs s uch as food, clothing, or medical care? No 09/01/2024 In the past 12 months have y ou been in a relationship with a person who hurts, threatens, or tries to control you? No 09/01/2024 Are you denied basic needs s uch as food, clothing, or medical care? No 09/01/2024 In the past 12 months have y ou been in a relationship with a person who hurts, threatens, or tries to control you? No 09/01/2024 Comments Unknown Sex and Gender Information Value Date Recorded Sex Assigned at Unknown 02/07/2024 3:53 PM EDT Legal Sex Female 9:29 PM EDT Gender Identity Other 02/07/2024 3:53 PM EDT Sexual Orientation Don't know 02/07/2024 3: 53 PM EDT Last Filed Vital Signs Vital Sign Reading Time Taken Comments Blood Pressure 114/85 09/04/2024 7:49 AM EDT Pulse 74 09/04/2024 7:49 AM EDT Temperature 36.6 C (97.9 F) 09/04/2024 7:49 AM EDT Respiratory Rate 18 09/04/2024 7:49 AM EDT Oxygen Saturation 97% 09/04/2024 7:49 AM EDT Inhaled Oxygen Concentration - - Weight 54.2 kg (119 lb 8 oz) 09/04/2024 5:45 AM EDT Height 162.6 cm (5' 4.02 ) 09/03/2024 8:01 AM ED T Body Mass Index 20.5 09/03/2024 8:01 AM EDT Plan of Treatment Health Maintenance Due Date Last Done Comments Adult Td,Tdap Booster 1987 DEPRESSION SCREENING 1999 HIV ONE-TIME SCREENING (18-6 5 YEARS) 2005 HEPATITIS A VACCINES (1 of 2 - Risk 2-dose series) 2006 PNEUMOCOCCAL VACCINES (0-49 years) (1 of 2 - PCV) 2006 PAP SMEAR 2008 COVID-19 VACCINE (2023-2 5 season) 2024 SMOKING STATUS SCREENING (On ce After 26 Yrs) Completed 09/02/2024 HIB VACCINES Aged Out No longer eligi ble based on patient's age to complete this topic MENINGOCOCCAL VACCINES (ACWY) Aged Out No longer eligible based on patient's age to complete this topic MENINGOCOCCAL VACCINES (B) Aged Out N o longer eligible based on patient's age to complete this topic Medical Devices Not on file Insurance [facility] C3 ACO Advance Directives For more information, please contact: [phone] (9AM - 5PM [facility], Monday-Monday) * Full Code (Latest Code Status on File) Date Activated Date Inactivated Comments 09/01/2024 6:02 PM Question Answer Comments Code Status Confirmed With: Patient Care Teams Underground Production Foreperson Relationship Specialty Start Date End Date Pcp, Unknown PCP - General 09/01/24 Additional Source Comments The information contained in this document represents components of the legal health record. It is not the complete legal health record.[facility]
--- OUTSIDE RECORDS SUMMARY | 2024-12-27 12:11 | XMS_ITS | Patient Health Record ---
Author Organization [facility] Address [address], [place] [id number] Care Team Providers Care Operations Support Analyst Name Role Phone NO, PCP Primary Care Provider [facility], [facility] Unavailable [phone] Reason For Referral No Information Problems Problem Type SNOMED Code ICD Code Onset Dates Problem Status W/U Status Risk Notes Problem Sheltered homelessness (008132433664295 ) Sheltered homelessness (Z59.01) Active confirmed Plan Of Treatment No Information Insurance Providers Payer Name Payer Address Payer Phone Subscriber Number Group Number Insured Name Patient Relationship to Insured Coverage Start Date Coverage End Date [place] Medicaid Standard [address] [place] [address] [phone] [id number] Dorothy Renteria Self - patient is the insured 4
--- OUTSIDE RECORDS SUMMARY | 2024-12-27 12:11 | XMS_ITS | Clinical Summary ---
Author Organization [employer] [facility] Address [address] [place] [address] Care Team Providers Care Grab Jack Man Name Role Phone Lori Smith MD Primary Care Provider [phone] Allergies No known active allergies Medications * This document contains information received from the source organization and may not represent a complete record from that organization. amphetamine-dex troamphetamine XR (Adderall XR) 30 MG 24 hr capsuleIndicati ons:Impulse control disorder Take 1 capsule (30 mg) by mouth in the morning. Do not crush or chew. 30 capsule 4 Active hydrOXYzine HCl (Atarax) 25 MG tabletIndicatio ns:Impulse control disorder TAKE 1 TABLET BY MOUTH TWICE A DAY 60 tablet 4 Active Additional Information Patient not taking.Reported on 03/04/2024 ARIPiprazole (Abilify) 10 MG tabletIndicatio ns:Bipolar disorder, current episode mixed, moderate (CMS/HCC) TAKE 1 TABLET (10 MG) BY MOUTH ONCE PER DAY. 30 tablet 4 Active Active Problems Problem Noted Date Diagnosed Date Unsheltered homelessness 03/12/2024 Impulse control disorder 12/18/2023 Bipolar disorder, current episode mixed, moderat e 12/18/2023 Encounters Date Type Department Care Team Description 11/27/2024 Patient Outreach [facility] Care [facility] (C3) Department [address] [phone] Shae Diaz c3 care management (Notification of Closed RN Care Management //C3 Member Dorothy Renteria 1985 has closed services as Lost Contact . /Member transferred to Other:unable to reach//environmental department manager: Shae Diaz clinical pet care associate) 11/04/2024 Patient Outreach [facility] (C3) Department [address] [place] [phone] Joe Shae 10/18/2024 Patient Outreach [facility] ([facility] Department [address] [place] [phone] Joe Shae 10/11/2024 Patient Outreach [facility] () Department [address] [place] [phone] Shae Diaz 09/26/2024 Patient Outreach [facility] ([facility] Department [address] [place] [phone] Joe Shae from Last 3 Months Social History Tobacco Use Types Packs/Day Years Used Date Smoking Tobacco: Every Day Cigarettes 0.5 13.6 Started: 2011 Tobacco Cessation:Ready to Q uit: Not Asked; Counseling Given: Not Answered Alcohol Use Standard Drinks/Week Comments Yes 1 (1 standard drink = 0.6 oz pur e alcohol) Depression Answer Date Recorded Patient Health Questionnaire-9 Score 4 03/12/2024 Patient Health Questionnaire-9 Score 4 03/12/2024 Last PHQ-9: Questionnaire Data Not on file 1 Depression Answer Date Recorded Patient Health Questionnaire-2 Score 1 03/12/2024 Comments Unknown Sex and Gender Information Value Date Recorded Sex Assigned at Female 11/28/2023 3:11 PM EDT Legal Sex Female 3:07 PM EDT Gender Identity Female 11/28/2023 3:11 PM EDT Sexual Orientation Pansexual 11/28/2023 3: 11 PM EDT Last Filed Vital Signs Vital Sign Reading Time Taken Comments Blood Pressure 113/67 03/04/2024 12:49 PM EDT Pulse 104 03/04/2024 12:49 PM EDT Temperature - - Respiratory Rate 18 03/04/2024 12:49 PM EDT Oxygen Saturation 98% 02/06/2024 11:23 AM EDT Inhaled Oxygen Concentration - - Weight 57.6 kg (127 lb) 03/04/2024 12:49 PM EDT Height 160.7 cm (5' 3.25 ) 12/18/2023 10:38 AM E DT Body Mass Index 22.32 12/18/2023 10:38 AM EDT Plan of Treatment Health Maintenance Due Date Last Done Comments HIV Screening 1987 Lipid Panel 1987 SDOH Screening 1987 Disability Screening 1987 Alcohol/Substance Use Screening 1999 Family Planning (PISQ) 2002 HPV Vaccines (1 - 3-dose series) 2002 DTaP/Tdap/Td Vaccines (1 - Tdap) 2006 Hepatitis A Vaccines (1 of 2 - Risk 2-dose series) 2006 Hepatitis B Vaccines (1 of 3 - 19+ 3-dose series) 2006 Pneumococcal Vaccine: Pediatrics (0 to 5 Years) and At-Risk Patients (6 to 49) Years (1 of 2 - PCV) 2006 Pap Smear 2008 Cervical Cancer Screening 2017 HPV/Cotest 2017 COVID-19 Vaccine (1 - 2023-2 5 season) 2024 Influenza Vaccine (#1) 2025 Tobacco Screening 03/04/2025 03/04/2024 Depression Screening 03/12/2025 03/12/2024, 03/12/2024 Zoster Vaccines (1 of 2) 2037 RSV Patients and Patients Aged 60 years or older (1 - 1-dose 75+ series) 2062 HIB Vaccines Aged Out No longer eligi ble based on patient's age to complete this topic IPV Vaccines Aged Out No longer eligi ble based on patient's age to complete this topic Meningococcal B Vaccine Aged Out No l onger eligible based on patient's age to complete this topic Meningococcal Vaccine Aged Out No seb steven eligible based on patient's age to complete this topic RSV under 20 months Aged Out No longe r eligible based on patient's age to complete this topic Rotavirus Vaccines Aged Out No longer eligible based on patient's age to complete this topic Insurance [employer] [facility] Care Teams Grab Jack Man Relationship Specialty Start Date End Date Lori Smith MD [address] [place] [address] PCP - General Family Medicine 12/13/23
[2024-12-27 12:15] LABS: Glucose, Whole Blood 131 mg/dL (60-115)
--- NOTE | 2024-12-27 12:22 | PC.NURSE ---
Pt sitting upright. eyes open. resp even, unlabored
[2024-12-27 12:30] LABS: Glucose, Whole Blood 93 mg/dL (60-115)
[2024-12-27 13:53] LABS: Glucose, Whole Blood 65 mg/dL (60-115)
[2024-12-27] MEDS: Lactated Ringers 1,000 ML 999 ML IV (13:56)
--- NOTE | 2024-12-27 13:56 | PC.NURSE ---
TW covering primary RN's lunch, POC checked - 65, patient given snacks, LR hung per order.
[2024-12-27 14:11] LABS: Glucose, Whole Blood 81 mg/dL (60-115)
--- NOTE | 2024-12-27 14:34 | PC.NURSE ---
Pt remained alert when BP became low. MD requested that LR be on pressure bag. Pt was able to eat a sizable lunch.
--- NOTE | 2024-12-27 14:45 | PC.NURSE ---
remains arousable to vrbal stimuli. skin pwd.
--- NOTE | 2024-12-27 14:50 | MHC.CARE ---
CARE team met with pt, declined SUDE, see assessment for further information.
--- NOTE | 2024-12-27 16:04 | PC.NURSE ---
steady on feet to BR. states she's not interested in recovery offerings. made aware
--- NOTE | 2024-12-27 16:39 | PC.NURSE ---
RN to RN with Melissa in POD. Pt walked there with security installer. NO issues.
--- NOTE | 2024-12-27 19:46 | PC.NURSE ---
Assumed care of patient at 1845, patient appears to be in no apparent distress, resting in bed, calm and cooperative. Continue plan of care for CARE team isaias
--- NOTE | 2024-12-27 20:01 | MHC.CARE ---
Addendum entered by Laisha Mccullough LCSW 12/27/24 20:14: Discussed with Dr. Delgado and it was determined that Pt can discharge when she is more alert. Resources can be provided to her at discharge if Pt is interested. Original Note: CARE team attempted to meet with Pt earlier today for recovery as the ED provider requested a SUDE after suspected opiate overdose. It it noted that Pt declined to participate. CARE Team consulted again as Pt expressed possibly being interested in detox upon discharge. CARE Team attempted to meet with Pt who minimally engaged, was irritable and reported that she was not experiencing withdrawal symptoms. Unwilling to fully engage in a assessment regarding her substance use at this time. Did appear significantly sedated.
[2024-12-27 20:17] LABS: Cannabinoid Screen Urine POSITIVE (Not Detect)
[2024-12-27 20:28] LABS: Glucose, Whole Blood 95 mg/dL (60-115)
[2024-12-28 06:51] VITALS: BP 133/88; PULSE 67; RESP 16; TEMP 37; O2SAT 100
--- NOTE | 2024-12-28 07:51 | PC.NURSE ---
Pt sleeping at this time. chest rise noted.
--- NOTE | 2024-12-28 09:08 | PHA.MEDREC ---
Pharmacy Consult ? Medication Reconciliation Pharmacy has REVIEWED the medication reconciliation DONE BY NURSING.
[2024-12-28 09:45] VITALS: BP 133/88; PULSE 67; RESP 16; TEMP 37; O2SAT 100
== END 2024-12-28 09:47 | disposition home or self-care (01) ==
PROVIDERS: Emergency Provider Emergency Medicine; PCP Family Medicine
DX: F11.90 Opioid use, unspecified, uncomplicated (principal); T40.1X1A Poisoning by heroin, accidental (unintentional), initial encounter; Y92.410 Unspecified street and highway as the place of occurrence of the external cause; R40.4 Transient alteration of awareness; E16.2 Hypoglycemia, unspecified; E86.0 Dehydration; R11.0 Nausea; R00.0 Tachycardia, unspecified; Z79.899 Other long term (current) drug therapy
CPT/HCPCS: 36415; 80053; 80307; 82947; 85025; 93005; 96361; 96372; 96374; 99284; 99285; J1630; J3360; J7120; S9485

== ENCOUNTER → 2024-12-27 08:01 | Outpatient (BNV) | payer MEDICAID, SELFPAY | PROVIDERS: Emergency Provider Emergency Medicine; PCP Family Medicine; Visit Provider Internal Medicine Cardiovascular Disease | DX: R00.0 Tachycardia, unspecified (principal) | CPT/HCPCS: 93010 ==

== ENCOUNTER 2024-12-29 18:10 | Emergency (ER) | payer MEDICAID, SELFPAY ==
[2024-12-29 18:35] VITALS: BP 130/82; PULSE 104; RESP 18; TEMP 36.3; O2SAT 96; BMI 19.7
[2024-12-29 18:44] LABS: Glucose, Whole Blood 137 mg/dL (60-115)
--- NOTE | 2024-12-29 18:58 | ED_ITS ---
HPI - General Adult General Chief complaint: ETOH/Substance Use Stated complaint: OD, narcan given Time Seen by Provider: 12/29/24 18:43 Source: patient Mode of arrival: ambulatory Limitations: no limitations History of Present Illness ED Provider: Young SIMPSON HPI narrative: The patient is a 39-year-old female presenting to the ED via EMS for evaluation of a suspected overdose. The patient was administered Narcan by a bystander in an alleyway. Patient admits she was smoking crack cocaine but believes it may have been laced with fentanyl. The patient in the ED is calm, cooperative, and without complaint. Patient denies suicidal or homicidal ideation, denies any acute somatic complaint. Related Data Home Medications ?Medication ?Instructions ?Recorded ?Confirmed No Known Home Meds 12/27/24 12/27/24 Allergies Allergy/AdvReac Type Severity Reaction Status Date / Time No Known Allergies Allergy Verified 12/29/24 18:38 Review of Systems Review of Systems: Yes all other systems are reviewed and are negative PMFSH Social History Social History Alcohol intake: current Alcohol intake frequency: holidays/special occasions only Patient Tobacco Use Status: Never used Tobacco Substance Use Type: Heroin Advance Directives: No Advance Directives Information Provided: Yes Physical Exam ED Vital Signs: Vital Signs - 24 hr 12/29/24 18:35 Temperature 97.3 F Pulse Rate 104 H Respiratory Rate 18 Blood Pressure 130/82 Pulse Oximetry 96 Oxygen Delivery Method Room Air BMI result Body Mass Index 19.7 CONSTITUTIONAL: The patient appears mildly cachectic, mildly unkempt, otherwise non-toxic, well nourished and in no acute distress. Vital signs as documented. HEAD: Atraumatic, normocephalic. EYES: EOMs grossly intact, pupils equal, conjunctiva clear, no exudate. ENT: Nares patent, no discharge. Airway patent, no audible stridor, visible mucosa is pink and moist without noted lesions. NECK: trachea is midline, no obvious masses or gross abnormalities. CHEST: Symmetric movement, normal appearance. LUNGS: Non-labored work of breathing. CARDIAC: No evidence of hypoperfusion. ABDOMEN: Nondistended, no obvious injury. : Deferred. EXTREMITIES: Moves all extremities spontaneously without reported pain. No obvious injury or deformity noted. NEURO: Alert and oriented x3, CN II-XII appear grossly intact. Cerebellar Functioning grossly intact. Speech clear and appropriate. Patient ambulates with a steady gait. PSYCH: normal affect, appropriate eye contact, fluid speech, with appropriate response to questioning. No reported suicidality or homicidality. Patient does not appear to be responding to internal stimuli. SKIN: Warm, dry, color appropriate. No rashes or lesions noted. Medical Decision Making Medical Decision Making [facility] Narrative: 7:05 PM 12/29/2024 (Iris SIMPSON): Patient is a 39-year-old female presenting to the ED after Narcan administration by a bystander for suspected opiate overdose. The patient is smoking crack cocaine, believes it may have been laced with an opiate. Blood sugar in the ED 137. The patient in the ED is calm, cooperative, alert, oriented, and requesting discharge. Patient was offered recovery services and declined. Patient was offered take-home Narcan and declined. Patient is ambulating with a steady gait, no evidence of clinical intoxication or risk to herself. The patient is requesting discharge, patient will be discharged to her own care. Admission/Observation Consideration of admission/observation: Escalation of care including admission/observation considered Lab Data [facility] Lab Attestation statement: I reviewed the patient's lab results. Labs: Lab Results 12/29/24 Range/Units 18:41 POC Glucose 137 H (60-115) mg/dL Discharge Plan Discharge Clinical Impression: Overdose Qualifiers: Encounter type: initial encounter Injury intent: accidental or unintentional Qualified Code(s): T50.901A - Poisoning by unspecified drugs, medicaments and biological substances, accidental (unintentional), initial encounter Patient Disposition: Home, Self-Care Instructions: Adult Overdose (ED) Additional Instructions: Thank you for choosing [facility]'s Emergency Department for your care today. At this time there is no evidence of an acute process requiring admission to the hospital or continued ED observation, and it is safe to discharge you home. You were seen in the emergency department today for evaluation of a suspected opiate overdose. Please do not use heroin or other recreational drugs as they are generally not good for your health and can put you at risk for respiratory arrest, anoxic brain injury, severely decreased quality of life, and potentially an otherwise avoidable . Please make use of all available personal and community-based resources to attempt to become sober from recreational drugs. Please stay well hydrated and get plenty of rest. Please follow up with your primary care physician for re-evaluation, additional management of your symptoms, and continued preventative care. If you do not have a primary care physician, please call the [facility] at [phone] to establish a new primary care physician. While waiting to establish your new primary care physician, you can call our Walk-in Care [facility] at [phone] for non-emergency needs. Please return to the emergency department if you develop a severe or sudden change in your symptoms, a fever over 100.4 that does not improve with Tylenol or Ibuprofen, recurrent vomiting, or any other new or worsening symptoms or concerns. Prescriptions: No Action No Known Home Meds Print Language: Mohawk
[2024-12-29 19:07] VITALS: BP 130/82; PULSE 104; RESP 18; TEMP 36.3; O2SAT 96
== END 2024-12-29 19:08 | disposition home or self-care (01) ==
PROVIDERS: Emergency Provider Emergency Medicine
DX: T65.91XA Toxic effect of unspecified substance, accidental (unintentional), initial encounter (principal); Y92.9 Unspecified place or not applicable
CPT/HCPCS: 82947; 99282

== ENCOUNTER 2025-01-06 15:57 | Emergency (ER) | payer MEDICAID, SELFPAY ==
[2025-01-06 16:18] VITALS: BP 130/94; BP 136/74; PULSE 120; PULSE 90; RESP 16; TEMP 36.8; O2SAT 95; BMI 23.4
--- NOTE | 2025-01-06 16:30 | ED_ITS ---
HPI - Alcohol General Chief Complaint: Altered Mental Status Stated Complaint: ETOH Time Seen by Provider: 01/06/25 16:11 Source: EMS Mode of arrival: EMS Limitations: other (ETOH) History of Present Illness ED Provider: Dr. Brenda Dubose HPI narrative: Patient comes to the emergency room via EMS for alcohol intoxication. According to EMS, the patient was found in [place] acting erratic, intoxicated. Patient denies any drug use, admits that she drank 1 pt of vodka prior to EMS picking her up. Patient denies any falls, denies SI or HI Related Data Home Medications ?Medication ?Instructions ?Recorded ?Confirmed No Known Home Meds 12/27/24 12/27/24 Allergies Allergy/AdvReac Type Severity Reaction Status Date / Time No Known Allergies Allergy Verified 01/06/25 16:24 Review of Systems Review of Systems: Constitutional : No Weight loss, No Fever, No Chills, No Night Sweats, No Fatigue, No Malaise ENT/Mouth : No Hearing loss, No Ear Pain, No Nasal Congestion, No Sinus Pain, No Hoarseness, No sore throat, No Rhinorrhea, No Swallowing Difficulty Eyes: No Eye Pain, No Swelling, No Redness, No Foreign Body, No Discharge, No Vision Changes Cardiovascular : No Chest Pain, No SOB, No Dyspnea on Exertion, No Orthopnea, No Edema, No Palpitations Respiratory : No Cough, No Sputum, No Wheezing, No Smoke Exposure, No Dyspnea Gastrointestinal : No Nausea, No Vomiting, No Diarrhea, No Constipation, No abdominal Pain, No Hematochezia, No Melena Genitourinary : no irregular bleeding, No Dysuria, No Urinary Frequency, No Hematuria, No Urinary Incontinence, No Urgency, No Flank Pain, No Urinary Flow Changes, No Hesitancy Musculoskeletal : No joint pain, No Myalgias, No Joint Swelling Skin : No Skin Lesions, No rash Neuro : No Weakness, No Numbness, No Paresthesias, No Loss of Consciousness, No Dizziness, No Headache Psych : No Anxiety/Panic, No Depression, admits to alcohol abuse, denies drug use Heme/Lymph: No Bruising, No Bleeding,No Lymphadenopathy Endocrine : No Polyuria, No Polydipsia, No Temperature Intolerance PMF Past Medical History Medical History (Updated 01/06/25 @ 18:28 by Brenda Dubose MD) Alcohol abuse Overdose Polysubstance abuse Social History Social History Alcohol intake: current Alcohol intake frequency: 3 or more drinks per day Alcohol type: beer and hard liquor Patient Tobacco Use Status: Never used Tobacco Smoked in Last 30 Days: Yes Use of substances other than those prescribed or required for medical reasons: Refusing to respond Substance Use Type: Heroin Advance Directives: No Advance Directives Information Provided: Yes Do you have a plan to hurt others: No Plan Patient : No Physical Exam ED Exam Exam: Appearance: Alert. Oriented X3. No acute distress. Disheveled Eyes: Pupils equal, round and reactive to light. ENT: Pharynx normal. Neck: Normal inspection. Neck supple. No lymph nodes noted. No crepitus CVS: Normal heart rate and rhythm. Pulses normal. Normal S1 and S2 Respiratory: No respiratory distress. Breath sounds normal. No Wheezing. No rales Abdomen: Soft and nontender. No rigidity. No distention. Skin: Skin warm and dry. Normal skin color. Normal skin turgor. Extremities: No lower extremity edema. No Lacerations. No Rash Neuro: Oriented X 3. No motor deficit. No sensory deficit. Moving all extremities. No slurred speech. CN 2 through 12 grossly intact Psych: Belligerent, combative Vital Signs: Vital Signs - 24 hr 01/06/25 16:18 01/06/25 18:09 Temperature 98.2 F 98.2 F Pulse Rate 90 90 Respiratory Rate 16 16 Blood Pressure 136/74 136/74 Pulse Oximetry 95 95 Oxygen Delivery Method Room Air Room Air BMI result Body Mass Index 23.4 Course Course Course Narrative: Patient is intoxicated, belligerent, combative. Initially, we were able to deescalate the patient verbally. However, patient is called it quickly again. IM medications were ordered, however, after a prolonged conversation with the patient, eventually she was able to calm down. No IM medications were given. Patient called her uncle who is her sober ride. Patient agreed to stay in her bed a not agitated other patients while waiting for her sober ride Medical Decision Making Medical Decision Making MDM Narrative: Patient is alert and oriented, intoxicated but able to walk Patient denies SI or HI Patient's ride is here, on-call will be taking her home. Differential Diagnosis Differential Diagnoses: The differential diagnosis associated with the presentation includes (Alcohol abuse, polysubstance abuse, intoxication) Admission/Observation Consideration of admission/observation: Escalation of care including admission/observation considered (It was consider chemically restraining the patient, after a prolonged conversation, patient deescalated) Critical Care Time Critical Care Time Critical Care Time: Yes Total Critical Care Time: 35 Attestation: I have personally provided critical care time. Time includes review of lab data, radiology results, discussion with consultants, and monitoring for potential decompensation. Intervention performed as documented. Discharge Plan Discharge Clinical Impression: Alcoholic intoxication Patient Disposition: Home, Self-Care Instructions: Alcohol Intoxication (ED) Prescriptions: No Action No Known Home Meds Interventions: ED Discharge Assessment Last Done: 01/06/25 18:09 Print Language: Turkmen
[2025-01-06 18:09] VITALS: BP 136/74; PULSE 90; RESP 16; TEMP 36.8; O2SAT 95
--- OUTSIDE RECORDS SUMMARY | 2025-01-06 18:13 | XMS_ITS | Encounter Summary ---
Author Organization [employer] Address [address] [place] [address] Care Team Providers Care Steam Fitter Supervisor Maintenance Name Role Phone Lori Smith MD Primary Care Provider [phone] Encounter Details Date Type Department Care Team (Late st Contact Info) Description 02/07/2024 Orders Only [facility] Information Management [address] [place] [address] Lori Smith MD [address] [place] [address] Social History Tobacco Use Types Packs/Day Years Used Date Smoking Tobacco: Every Day Cigarettes 0.5 13.6 Started: 2011 Alcohol Use Standard Drinks/Week Comments Yes 1 (1 standard drink = 0.6 oz pur e alcohol) Comments Unknown Sex and Gender Information Value Date Recorded Sex Assigned at Female 11/28/2023 3:11 PM EDT Legal Sex Female 3:07 PM EDT Gender Identity Female 11/28/2023 3:11 PM EDT Sexual Orientation Pansexual 11/28/2023 3: 11 PM EDT documented as of this encounter Plan of Treatment Not on file documented as of this encounter Procedures Procedure Name Priority Date/Time Associated Diagnosis Comments XR CHEST 2 VIEWS Routine 02/07/2024 9:[address] HEAD WO CONTRAST Routine 02/07/2024 9:55 AM EDT documented in this encounter Results * XR Chest 2 Views (02/07/2024 9:56 AM EDT) Anatomical Region Laterality Modality Chest Radiographic Quyen ging Lori Smith MD IMG XR PROCEDURES Final Result * CT HEAD WO CONTRAST (02/07/2024 9:55 AM EDT) Anatomical Region Laterality Modality Computed Tomogra phy us Lori Smith MD IMG CT PROCEDURES Final Result documented in this encounter Visit Diagnoses Not on filedocumented in this encounter Care Teams Steam Fitter Supervisor Maintenance Relationship Specialty Start Date End Date Lori Smith MD [address] [place] [address] PCP - General Family Medicine 12/13/23 documented as of this encounter
--- OUTSIDE RECORDS SUMMARY | 2025-01-06 18:13 | XMS_ITS | Clinical Summary ---
Author Organization [facility] Address [address] [place] [address] Phone Care Team Providers Care Gis Geographer Name Role Phone Pcp, Unknown Primary Care [...] had an Ultrasound at a hospital in [place] for Dual Diagnosis which showed she was [...] topic Medical Devices Not on file Insurance [facility] C3 ACO Advance Directives For more information, please contact: [phone] (9AM - 5PM [facility], Monday-Monday) * Full Code (Latest Code Status on File) Date Activated Date Inactivated Comments 09/01/2024 6:02 PM Question Answer Comments Code Status Confirmed With: Patient Care Teams Gis Geographer Relationship Specialty Start Date End Date Pcp, Unknown PCP - General 09/01/24 Additional Source Comments The information contained in this document represents components of the legal health record. It is not the complete legal health record.[facility]
--- OUTSIDE RECORDS SUMMARY | 2025-01-06 18:13 | XMS_ITS | Clinical Summary ---
Author Organization [employer] Address [address] [place] [address] Care Team Providers Care Director Of Elementary Education Name Role Phone Lori Smith MD Primary Care Provider Allergies No known active allergies Medications * [...] Encounters Date Type Department Care Team Description 12/30/2024 Telephone [facility] MEDICAL [address] [place] [address] Lori Smith MD ED visit 11/27/2024 Patient Outreach [employer] [facility] Department [address] [phone] Shae Diaz c3 care management (Notification of Closed RN Care Management //C3 Member Dorothy Dexter 1985 has closed services as Lost Contact . /Member transferred to Other:unable to reach//regional maintenance manager: Shae Diaz clinical day care attendant) 11/04/2024 Patient Outreach [facility] () Department [address] [place] [phone] Shae Diaz 10/18/2024 Patient Outreach [facility] () Department [address] [place] [phone] Shae Diaz 10/11/2024 Patient Outreach [facility] Care [facility] () Department [address] [place] [phone] Shae Diaz from Last 3 Months Social History Tobacco [...] patient's age to complete this topic Insurance [employer] [facility] Care Teams Director Of Elementary Education Relationship Specialty Start Date End Date Lori Smith MD [address] [place] [address] PCP - General Family Medicine 12/13/23
--- OUTSIDE RECORDS SUMMARY | 2025-01-06 18:13 | XMS_ITS | Patient Health Record ---
Author Organization [facility] Address [address] [place], [place] [id number] Care Team Providers Care Cloth Finishing Range Back Tender Name Role Phone NO, PCP Primary Care Provider [facility] Unavailable [phone] Reason For Referral No Information Problems Problem Type SNOMED Code ICD Code Onset Dates Problem Status W/U Status Risk Notes Problem Sheltered homelessness ([id number] ) Sheltered homelessness (Z59.01) Active confirmed Plan Of Treatment No Information Insurance Providers Payer Name Payer Address Payer Phone Subscriber Number Group Number Insured Name Patient Relationship to Insured Coverage Start Date Coverage End Date [place] Standard [address] [place] [address] [id number] Dorothy Renteria Self - patient is the insured 4
--- OUTSIDE RECORDS SUMMARY | 2025-01-06 18:13 | XMS_ITS | Encounter Summary ---
Author Organization [employer] Address [address] [place] [address] Care Team Providers Care Clinical Research Director Name Role Phone Lori Smith MD Primary Care Provider [phone] Reason for Visit * Reason Onset Date Comments ED visit 12/30/2024 Encounter Details Date Type Department Care Team ([facility] st Contact Info) Description 12/30/2024 Telephone [facility] MEDICAL [address] [place] [address] Lori Smith MD [address] [place] [address] ED visit Social History Tobacco Use Types Packs/Day Years [...] PM EDT documented as of this encounter Miscellaneous Notes * Telephone Encounter - Kristine Mckeon RN - 01/01/2025 12:12 PM EDT Person you have dialed is unable to receive calls. Sending to Dr. Smith's [place] to see if she knows another way to contact pt. * Telephone Encounter - Sarah Jauregui LPN - 12/31/2024 9:41 AM EDT Call to patient to discuss recent ED visit and offer office visit. The number you have dialed is not able to receive calls at this time . Date of ED visit: 12/27/24 Discharge date: 12/27/24 Hospital: [facility] Records on file: yes Discharge diagnosis: suspected opiate overdose Patient described events as: found unresponsive on sidewalk Follow-up scheduled: Attempted to call pt * Telephone Encounter - Kristine Mckeon RN - 12/30/2024 4:48 PM EDT 12/27 [facility] Found unresponsive on sidewalk. Overdose, hypoglycemia, acute dehydration. Declined detox. DC home. Flowsheet completed. * Telephone Encounter - Nava Loya - 12/30/2024 11:27 AM EDT Patient seen at [facility], see scanned note documented in this encounter Plan of Treatment Not on file documented as of this encounter Visit Diagnoses Not on filedocumented in this encounter Additional Health Concerns Assessment Noted Time PHQ-9 Depression Total Score: 4 03/12/20 11:51 AM EDT documented as of this encounter Care Teams Clinical Research Director Relationship Specialty Start Date End Date Lori Smith MD [address] [place] [address] PCP - General Family Medicine 12/13/23 documented as of this encounter
--- OUTSIDE RECORDS SUMMARY | 2025-01-06 18:14 | XMS_ITS | Encounter Summary ---
Author Organization [facility] Address [address] [place] [address] Phone Care Team Providers Care Clinical Statistical Programmer Name Role Phone Pcp, Unknown Primary Care Provider Unavailabl e Encounter Details Date Type Department Care Team (Late st Contact Info) Description 09/01/2024 Procedure [facility], Ct Scan - [facility] [address] [place] [address] Social History Tobacco Use Types Packs/Day Years Used Date Smoking Tobacco: Never Smokeless Tobacco: Never Alcohol Use Standard Drinks/Week Comments Yes 0 [...] your housing situation today? I have ritika sing 09/01/2024 How many times have you move [...] tries to control you? No 09/01/2024 Comments No Sex and Gender Information Value Date Recorded Sex Assigned at Unknown 02/07/2024 3:53 PM EDT Legal Sex Female 9:29 PM EDT Gender Identity Other 02/07/2024 3:53 PM EDT Sexual Orientation Don't know 02/07/2024 3: 53 PM EDT documented as of this encounter Functional Status * Calculated C-SSRS Risk Score (Lifetime/Recent) Answer Date of Assessment Author No Risk Indicated 09/01/2024 12:03 PM EDT Colin Urrutia RN * Leona Suicide Severity Rating Scale (Screener/Recent Self-Report) Question Answer Date of Assessment Author 1. Wish to be (Past 1 Month) No 09/01/2024 12:03 PM EDT Abraham Urrutia RN 2. Non-Specific Active Suicidal Thoughts (Past 1 Month) No 09/01/2024 12:03 PM EDT Abraham Urrutia RN 6. Suicidal Behavior (Lifetime) No 09/01/2024 12:03 PM EDT Abraham Urrutia RN documented as of this encounter Plan of Treatment Not on file documented as of this encounter Visit Diagnoses Not on filedocumented in this encounter Care Teams Clinical Statistical Programmer Relationship Specialty Start Date End Date Pcp, Unknown PCP - General 09/01/24 documented as of this encounter Additional Source Comments The information contained in this document represents components of the legal health record. It is not the complete legal health record.[facility]
--- NOTE | 2025-01-06 18:22 | PC.NURSE ---
Patient was being disruptive in the halls, using profanity. Attempted to redirect patient, patient was non compliant. Patient became resistive but was redirectable. Patient reached out to her uncle and was able to get a ride. Uncle Raúl arrived at ED. Patient was given back belongings but refused discharge paper work
== END 2025-01-06 18:28 | disposition home or self-care (01) ==
PROVIDERS: Emergency Provider Emergency Medicine
DX: R41.82 Altered mental status, unspecified (principal); F10.129 Alcohol abuse with intoxication, unspecified; Y90.9 Presence of alcohol in blood, level not specified
CPT/HCPCS: 99284